=== PATIENT | female | born 1980 | race Asian ===

== ENCOUNTER 2023-07-21 15:28 | Inpatient (IN) | payer MEDICAID ==
[~2023-07-21] VITALS: Ht 154.9 cm; Wt 70.8 kg
[2023-07-21 16:48] LABS: Basophils # (auto) 0.1 10 ^3/uL (0-0.2); Basophils % (auto) 0.8 % (0.0-2.0); Eosinophils # (auto) 0.1 10 ^3/uL (0-0.8); Hemoglobin 11.7 g/dL (12.2-16.2); Lymphocytes # (auto) 1.3 10 ^3/uL (0.4-5.4); Lymphocytes % (auto) 15.4 % (10.0-50.0); Monocytes # (auto) 0.4 10 ^3/uL (0-1.3)
[2023-07-21 16:49] LABS: Hematocrit 38.7 % (36.0-46.0); Mean Corpuscular Hemoglobin 20.3 pg (28.0-32.0); Mean Corpuscular Hgb Conc. 30.2 g/dL (32.0-36.0); Mean Corpuscular Volume 67.1 fL (80.0-100.0); Monocytes % (auto) 5.4 % (0.0-12.0); Neutrophils # (auto) 6.3 10 ^3/uL (1.6-8.6); Neutrophils % (auto) 77.4 % (37.0-80.0); Nucleated Red Blood Cells % 0.1 %; Red Blood Cells 5.77 10^6/uL (4.0-5.20); Red Cell Distribution Width 18.1 % (11.8-14.3); White Blood Cell 8.1 10^3/uL (4.4-10.8)
[2023-07-21 17:05] LABS: Alanine Aminotransferase 32 U/L (7-40); Albumin 4.3 g/dL (3.2-4.8); Alkaline Phosphatase 82 U/L (46-116); Anion Gap 7 (5-15); Aspartate Aminotransferase 17 U/L (13-40); BUN/Creatinine Ratio 21.1 (10.0-20.0); Blood Urea Nitrogen 16 mg/dL (9-23); Calcium 9.7 mg/dL (8.7-10.4); Carbon Dioxide 26 mmol/L (20-30); Chloride 100 mmol/L (98-107); Glucose 345 mg/dL (74-106); Potassium 4.3 mmol/L (3.5-5.1); Sodium 133 mmol/L (136-145)
[2023-07-21 17:06] LABS: Total Protein 7.2 g/dL (5.7-8.2)
[2023-07-21] MEDS ORDERED: SODIUM CHLORIDE 0.9% 1,000 ML IV ONE (18:00)
[2023-07-21] MEDS ORDERED: InsuLIN REG 1unit/0.01ml Soln (100units/ml) IV ONE (18:00)
[2023-07-21] MEDS ORDERED: ACETAMINOPHEN 325 MG TAB PO PRN (18:15)
[2023-07-21] MEDS ORDERED: DEXTROSE (50%) 50ML SYRG IV PRN (18:45)
[2023-07-21 18:58] LABS: LDL Cholesterol 62 mg/dL (< 100); Triglycerides 278 mg/dL (< 150)
[2023-07-21 18:59] LABS: HDL Cholesterol 33 mg/dL (40-59)
[2023-07-21 19:00] LABS: Cholesterol 122 mg/dL (< 200)
[2023-07-21 19:12] LABS: Urine Epithelial Cast None Seen /hpf (<5)
[2023-07-21 19:29] LABS: Urine Bacteria FEW /hpf (None Seen); Urine Blood TRACE /uL (Negative); Urine Clarity HAZY (Clear); Urine Color Colorless (Yellow); Urine Hyaline Cast FEW /lpf (0 - 2); Urine Protein, UAD TRACE (Negative); Urine Specific Gravity 1.031 (1.001-1.035); Urine Urobilinogen Normal (Negative); Urine WBC 64 /hpf (0 - 5); Urine pH 5.5 (5.0-8.0)
[2023-07-21 21:59] VITALS: PULSE 75; RESP 18; TEMP 36.7; O2SAT 98
[2023-07-21] MEDS: InsuLIN REG 1unit/0.01ml Soln (100units/ml) SC SCH (22:38)
[2023-07-21] MEDS: ACCU-CHEK COMFORT CURVE STRIP VI SCH (22:39)
[2023-07-22] VITALS (7 sets, daily range): BP systolic 122–142; BP diastolic 73–86; PULSE 17–77; RESP 16–17; TEMP 36.6; O2SAT 94–97
[2023-07-22] MEDS: InsuLIN REG 1unit/0.01ml Soln (100units/ml) SC SCH ×2 (06:39→11:33)
[2023-07-22] MEDS: SODIUM CHLORIDE 0.9% 1,000 ML IV SCH ×2 (06:41→11:28)
[2023-07-22] MEDS: ACCU-CHEK COMFORT CURVE STRIP VI SCH ×2 (06:47→11:24)
[2023-07-22 06:55] LABS: Hematocrit 35.1 % (36.0-46.0); Hemoglobin 10.8 g/dL (12.2-16.2); Mean Corpuscular Volume 66.5 fL (80.0-100.0)
[2023-07-22 06:56] LABS: Basophils # (auto) 0.1 10 ^3/uL (0-0.2); Basophils % (auto) 0.8 % (0.0-2.0); Eosinophils # (auto) 0.2 10 ^3/uL (0-0.8); Eosinophils % (auto) 1.9 % (0.0-7.0); Lymphocytes % (auto) 25.1 % (10.0-50.0); Mean Corpuscular Hemoglobin 20.4 pg (28.0-32.0); Mean Corpuscular Hgb Conc. 30.7 g/dL (32.0-36.0); Monocytes # (auto) 0.5 10 ^3/uL (0-1.3); Monocytes % (auto) 6.2 % (0.0-12.0); Neutrophils # (auto) 5.3 10 ^3/uL (1.6-8.6); Nucleated Red Blood Cells % 0.1 %; Red Blood Cells 5.27 10^6/uL (4.0-5.20); Red Cell Distribution Width 18.1 % (11.8-14.3); White Blood Cell 8.1 10^3/uL (4.4-10.8)
[2023-07-22 07:13] LABS: Alanine Aminotransferase 22 U/L (7-40); Albumin 3.9 g/dL (3.2-4.8); Alkaline Phosphatase 71 U/L (46-116); Anion Gap 6 (5-15); Aspartate Aminotransferase 13 U/L (13-40); BUN/Creatinine Ratio 12.9 (10.0-20.0); Blood Urea Nitrogen 9 mg/dL (9-23); Calcium 9.1 mg/dL (8.5-10.1); Carbon Dioxide 24 mmol/L (20-30); Chloride 105 mmol/L (98-107); Glucose 274 mg/dL (74-106); Sodium 135 mmol/L (136-145)
[2023-07-22 07:14] LABS: Bilirubin, Total 0.6 mg/dL (0.2-1.0); Total Protein 6.7 g/dL (5.7-8.2)
[2023-07-22] MEDS ORDERED: ENOXAPARIN SOD 40 MG/0.4 ML SYRINGE SC SCH (10:00)
[2023-07-22 10:28] LABS: Hypochromia Marked; Platelet Estimate Adequate
[2023-07-22] MEDS ORDERED: METF-372 PO (14:13)
[2023-07-22] MEDS ORDERED: CEFU500T43 PO (14:13)
[2023-07-22] MEDS ORDERED: LISI10TA34 PO (14:13)
[2023-07-22] MEDS ORDERED: ATOR20TA PO (14:13)
== END 2023-07-22 15:20 | disposition home or self-care (01) | DRG 420 ==
LOC: ER 15:28 → OVERFLOW 18:05 → WEST WING 21:38
PROVIDERS: ADMIT Nurse Practitioner Family; ATTEND Internal Medicine
DX: E11.65 Type 2 diabetes mellitus with hyperglycemia (principal); E87.1 Hypo-osmolality and hyponatremia; I10 Essential (primary) hypertension; E78.5 Hyperlipidemia, unspecified; F17.210 Nicotine dependence, cigarettes, uncomplicated; N39.0 Urinary tract infection, site not specified; Z79.84 Long term (current) use of oral hypoglycemic drugs; Z79.899 Other long term (current) drug therapy
CPT/HCPCS: 36415; 80053; 80061; 81001; 82010; 82962; 83036; 84443; 84484; 85025; 93005; G0378; J1815